=== PATIENT | male | born 1970 | race Hispanic/Latino ===

== ENCOUNTER 2017-08-03 12:43 | Outpatient (CLI) | payer BC ==
--- NOTE | 2017-08-03 15:04 | MRI ---
MRI OF THE CERVICAL SPINE WITHOUT CONTRAST: COMPARISON: None. HISTORY: Neck pain that radiates down both shoulders greater on the left for 2 months. TECHNIQUE: Multiplanar, multisequence MR images were obtained of the cervical spine without contrast. FINDINGS: There is mild desiccation of the intervertebral disks in the cervical spine without significant heig ht loss. The vertebral bodies demonstrate normal height and alignment without fracture or subluxati on. The visualized cord demonstrates normal signal throughout. The craniocervical junction is unre markable. C2-3: Unremarkable. C3-4: Unremarkable. C4-5: A minimal central protrusion is seen. No posterior facet arthrosis. Minimal central canal s tenosis. No neural foraminal stenosis. C5-6: Unremarkable. C6-7: A small central protrusion is seen. No posterior facet arthrosis. Mild central canal stenos is. No neural foraminal stenosis. C7-T1: Unremarkable. IMPRESSION: Mild degenerative changes of the cervical spine as above. POS: [facility]
== END 2017-08-03 12:44 | disposition home or self-care (01) ==
LOC: SCSMRI 12:43
PROVIDERS: ATTEND Psychiatry & Neurology Neurology
DX: M47.22 Other spondylosis with radiculopathy, cervical region (principal)
CPT/HCPCS: 72141

== ENCOUNTER 2018-08-18 04:40 | Emergency (ER) | payer BC ==
--- NOTE | 2018-08-18 08:46 | RAD ---
LEFT KNEE 4 VIEWS: HISTORY: A 47-year-old female with a history of bilateral knee pain status post fall. FINDINGS: No evidence for acute fracture, dislocation, or other significant acute osseous abnormality. Mild de generative changes. POS: [facility]
--- NOTE | 2018-08-18 08:47 | RAD ---
RIGHT KNEE 4 VIEWS: HISTORY: A 47-year-old male with a history of right knee pain following an injury from trauma. FINDINGS: Evidence for prior ACL repair. Arthrosis changes with fairly marked narrowing of the lateral compart ment in particular. No acute fracture or dislocation. IMPRESSION: Degenerative changes. Status post anterior cruciate ligament repair. No acute process. POS: [facility]
== END 2018-08-18 06:09 | disposition home or self-care (01) ==
LOC: ERS 04:40
DX: M25.562 Pain in left knee (principal); M25.561 Pain in right knee; I10 Essential (primary) hypertension; E78.00 Pure hypercholesterolemia, unspecified; Z79.899 Other long term (current) drug therapy; W01.0XXA Fall on same level from slipping, tripping and stumbling without subsequent striking against object, initial encounter

== ENCOUNTER 2018-10-09 20:59 | Emergency (ER) | payer BC ==
[2018-10-09 21:20] LABS: Bilirubin Negative (Negative); Blood, Urine Trace (Negative); Clarity CLEAR (Clear); Glucose, Urine (Dipstick) Negative (Negative); Leukocyte Negative (Negative); Nitrite Negative (Negative); Protein, Urine (Dipstick) Negative (Neg-Trace); Specific Gravity, Urine 1.003 (1.002-1.036); pH, Urine 6.5 (5.0-9.0)
[2018-10-09 21:21] LABS: Bacteria/HPF None Seen HPF (None Seen); Hyaline Casts/LPF 0-3 HYALINE CAST LPF (0-3 Hyaline); RBC/HPF 0-3 HPF (0-3); Squamous Epithelial None Seen HPF (0-3); WBC/HPF None Seen HPF (0-3)
[2018-10-09 21:28] LABS: #Basophils 0.1 thou/uL (0.0-0.2); #Eosinphils 0.2 thou/uL (0.0-0.7); #Lymphocytes 3.5 thou/uL (1.20-3.40); #Monocytes 1.1 thou/uL (0.11-0.59); #Neutrophils 7.4 thou/uL (1.40-6.50); %Basophils 0.9 % (0.0-1.0); %Eosinophils 1.8 % (0.0-10.0); %Lymphocytes 28.6 % (21.0-51.0); %Monocytes 8.6 % (0.0-10.0); %Neutrophils 60.1 % (42.0-75.0); Mean Corpuscular HGB CONC 33.8 g/dL (32.0-36.0); Mean Corpuscular Hemoglobin 30.6 pg (27.0-31.0); Mean Corpuscular Volume 90.7 fL (78.0-98.0); Mean Platelet Volume 7.5 fL (7.4-10.4); Platelet Count 311 thou/uL (130-400); RBC Distribution Width 12.6 % (11.5-14.5); Red Blood Cell (RBC) Count 4.88 mill/uL (4.70-6.10); White Blood Cell (WBC) Count 12.4 thou/uL (4.8-10.8)
[2018-10-09 21:48] LABS: ALT (SGPT) 27 U/L (8-55); AST (SGOT) 16 U/L (5-34); Albumin 4.5 g/dL (3.5-5.0); Alkaline Phosphatase 85 U/L (40-150); Anion Gap 12 mmol/L (10-20); BUN (Urea Nitrogen) 11 mg/dL (8.9-20.6); Bilirubin, Total 0.3 mg/dL (0.2-1.2); Calc. Creatinine Clearance 0 mL/min (70-130); Calcium 9.5 mg/dL (7.8-10.44); Carbon Dioxide 26 mmol/L (22-29); Chloride 105 mmol/L (98-107); Estimated GFR-MDRD 74; Globulin 3.2 g/dL (2.4-3.5); Glucose 107 mg/dL (70-105); Lipase 18 U/L (8-78); Potassium 3.7 mmol/L (3.5-5.1); Protein, Total 7.7 g/dL (6.0-8.3); Sodium 139 mmol/L (136-145)
[2018-10-09] MEDS ORDERED: Ketorolac Tromethamine 60 MG/2 ML VIAL ONE (22:29)
--- NOTE | 2018-10-09 23:10 | CT ---
CT OF THE ABDOMEN AND PELVIS WITHOUT CONTRAST 10/09/18 COMPARISON: None. HISTORY: Abdominal pain for a day in the left flank region. TECHNIQUE: Multiple contiguous axial images were obtained in a CT of the abdomen and pelvis without contrast. Co jc reformats were performed. FINDINGS: The patient is status post cholecystectomy. There is diffuse fatty infiltration of the liver. The kid neys, adrenal glands, spleen, and pancreas are unremarkable, although evaluation is limited without I V contrast. No calcifications are seen in the kidneys or along the course of the ureters. The large and small bow el are unremarkable. The appendix is normal. No abdominal or pelvic lymphadenopathy are seen. Mild degenerative changes are seen in the spine. The visualized inferior thorax and abdominal wall so ft tissues are unremarkable. IMPRESSION: 1. No evidence of acute intra-abdominal/pelvic abnormality. 2. Fatty liver. POS: [facility]
== END 2018-10-09 23:55 | disposition home or self-care (01) ==
LOC: ERS 20:59
DX: R10.13 Epigastric pain (principal); I10 Essential (primary) hypertension; J45.909 Unspecified asthma, uncomplicated; E78.00 Pure hypercholesterolemia, unspecified; F41.9 Anxiety disorder, unspecified; F32.9 Major depressive disorder, single episode, unspecified; Z87.891 Personal history of nicotine dependence; Z79.899 Other long term (current) drug therapy
CPT/HCPCS: 36415; 74176; 80053; 81003; 81015; 83690; 85025; 94760; 96372; J1885

== ENCOUNTER 2018-10-26 09:25 | Emergency (ER) | payer BC ==
[2018-10-26 10:25] LABS: #Basophils 0.1 thou/uL (0.0-0.2); #Eosinphils 0.3 thou/uL (0.0-0.7); #Lymphocytes 2.8 thou/uL (1.20-3.40); #Monocytes 0.8 thou/uL (0.11-0.59); #Neutrophils 5.3 thou/uL (1.40-6.50); %Basophils 1.1 % (0.0-1.0); %Eosinophils 3.2 % (0.0-10.0); %Lymphocytes 29.8 % (21.0-51.0); %Monocytes 9.1 % (0.0-10.0); %Neutrophils 56.9 % (42.0-75.0); Hemoglobin 15.9 g/dL (14.0-18.0); Mean Corpuscular HGB CONC 33.4 g/dL (32.0-36.0); Mean Corpuscular Hemoglobin 30.1 pg (27.0-31.0); Mean Corpuscular Volume 90.2 fL (78.0-98.0); Platelet Count 333 thou/uL (130-400); RBC Distribution Width 12.3 % (11.5-14.5); Red Blood Cell (RBC) Count 5.27 mill/uL (4.70-6.10); White Blood Cell (WBC) Count 9.3 thou/uL (4.8-10.8)
[2018-10-26 10:40] LABS: ALT (SGPT) 29 U/L (8-55); AST (SGOT) 15 U/L (5-34); Albumin 4.6 g/dL (3.5-5.0); Alkaline Phosphatase 83 U/L (40-150); Anion Gap 11 mmol/L (10-20); BUN (Urea Nitrogen) 10 mg/dL (8.9-20.6); Bilirubin, Total 0.4 mg/dL (0.2-1.2); Calc. Creatinine Clearance 0 mL/min (70-130); Calcium 9.8 mg/dL (7.8-10.44); Carbon Dioxide 28 mmol/L (22-29); Chloride 102 mmol/L (98-107); Estimated GFR-MDRD Greater than 90; Globulin 3.2 g/dL (2.4-3.5); Glucose 86 mg/dL (70-105); Potassium 3.5 mmol/L (3.5-5.1); Protein, Total 7.8 g/dL (6.0-8.3); Sodium 137 mmol/L (136-145)
--- NOTE | 2018-10-26 11:20 | RAD ---
CHEST ONE VIEW: INDICATIONS: Hypertension and chest pain. COMPARISON: 02/10/2018 FINDINGS: The lungs are clear. The cardiomediastinal silhouette is within normal limits. No acute osseous abn ormality is evident. IMPRESSION: No acute cardiopulmonary abnormality. POS: [facility]
== END 2018-10-26 13:25 | disposition home or self-care (01) ==
LOC: ERS 09:25
DX: I16.0 Hypertensive urgency (principal); I10 Essential (primary) hypertension; E78.00 Pure hypercholesterolemia, unspecified; J45.909 Unspecified asthma, uncomplicated; F41.9 Anxiety disorder, unspecified; F32.9 Major depressive disorder, single episode, unspecified; Z87.891 Personal history of nicotine dependence; Z79.899 Other long term (current) drug therapy
CPT/HCPCS: 71045; 80053; 84484; 85025; 85379; 93005

== ENCOUNTER 2019-08-01 07:10 | Inpatient (IN) | payer BC, OTHER ==
[2019-08-01] MEDS ORDERED: HYDROcodone/Acetaminophen 10/325 mg Tablet ONE (07:29)
[2019-08-01] MEDS ORDERED: Ketorolac Tromethamine 30 MG/ML VIAL ONE (07:54)
[2019-08-01] MEDS ORDERED: Fentanyl 100 MCG/2 ML VIAL ONE ×4 (07:54→17:45)
--- NOTE | 2019-08-01 08:13 | RAD ---
LEFT SHOULDER 3 VIEWS: HISTORY: Injury from a fall from a ladder 8 feet. FINDINGS/IMPRESSION: No fracture, dislocation, or other significant acute osseous abnormality. POS: [facility]
--- NOTE | 2019-08-01 08:15 | RAD ---
LEFT ANKLE 3 VIEWS: HISTORY: Injury from a fall from a ladder 8 feet with ankle pain. FINDINGS: There is some lateral soft tissue swelling. There is a comminuted calcaneal fracture with minimal fl attening of Bohler's angle. The remainder of the ankle appears intact. IMPRESSION: Comminuted calcaneal fracture. POS: [facility]
--- NOTE | 2019-08-01 08:18 | RAD ---
LEFT FOOT 3 VIEWS: HISTORY: Injured from a fall from a ladder 8 feet. Markedly comminuted calcaneal fracture with some flattening of Bohler's angle. Minimal associated so ft tissue swelling. IMPRESSION: Comminuted calcaneal fracture. POS: [facility]
--- NOTE | 2019-08-01 08:23 | CT ---
CT left foot noncontrast HISTORY: Fall. Foot injury. Fracture. FINDINGS: There are innumerable irregular ossific fragments associated with an extensively comminuted calcaneal fracture. Minimal distraction of an oblique component into the calcaneocuboid joint. Comminuted mildly displaced oblique components of fracture into the posterior aspect of the subtalar facet with 0.6 cm Distraction and anterior aspect with 0.4 cm distraction of fragments. Boehler's angle estimated at the degrees. Small plantar and Achilles enthesophytes. IMPRESSION: Extensively comminuted, mildly displaced calcaneal fracture including multiple intra-ryne cular components.
[2019-08-01] MEDS ORDERED: Dextrose 50% Abboject 50 ML SYRINGE SLOW IVP PRN (09:17)
[2019-08-01] MEDS ORDERED: Dextrose 5% in Water 1,000 ML IV PRN (09:17)
[2019-08-01] MEDS ORDERED: HumaLOG 300 UNITS/3 ML VIAL SC PRN (09:17)
[2019-08-01] MEDS ORDERED: hydrALAZINE 20 MG/ML VIAL SLOW IVP PRN (09:17)
[2019-08-01] MEDS ORDERED: Ondansetron PF 4 MG/2 ML Vial IVP PRN (09:17)
[2019-08-01] MEDS ORDERED: Ondansetron ODT 4 MG TAB PO PRN (09:17)
[2019-08-01 09:22] LABS: #Basophils 0.1 thou/uL (0.0-0.2); #Eosinphils 0.2 thou/uL (0.0-0.7); #Lymphocytes 3.4 thou/uL (1.20-3.40); #Monocytes 1.2 thou/uL (0.11-0.59); #Neutrophils 11.1 thou/uL (1.40-6.50); %Basophils 0.6 % (0.0-1.0); %Eosinophils 1.2 % (0.0-10.0); %Lymphocytes 21.2 % (21.0-51.0); %Monocytes 7.8 % (0.0-10.0); %Neutrophils 69.3 % (42.0-75.0); Mean Corpuscular HGB CONC 32.7 g/dL (32.0-36.0); Mean Corpuscular Hemoglobin 29.7 pg (27.0-31.0); Mean Corpuscular Volume 90.6 fL (78.0-98.0); Mean Platelet Volume 7.8 fL (7.4-10.4); Platelet Count 303 thou/uL (130-400); RBC Distribution Width 12.3 % (11.5-14.5); Red Blood Cell (RBC) Count 5.06 mill/uL (4.70-6.10)
[2019-08-01 09:29] LABS: PTT 26.5 SEC (22.9-36.1)
--- NOTE | 2019-08-01 09:40 | RAD ---
Chest AP view INDICATION: Fall from ladder COMPARISON: October 26, 2018 FINDINGS: Lungs:The lungs are clear Cardiac silhouette:The cardiomediastinal silhouette appears within normal limits. Pulmonary vasculature:Normal Pleural spaces:No pleural effusion or pneumothorax is demonstrated. Upper abdomen:No abnormality seen. Osseous structures: No acute osseous abnormality. Additional findings:None. IMPRESSION: No acute cardiopulmonary abnormality.
[2019-08-01] MEDS ORDERED: Adacel (T-DAP) 0.5 ML SYRINGE ONE (09:41)
[2019-08-01] MEDS ORDERED: CEFAZOLIN 2 GM in Premix Bag 1 BAG IVPB SCH (09:45)
[2019-08-01 09:46] LABS: ALT (SGPT) 42 U/L (8-55); AST (SGOT) 15 U/L (5-34); Albumin 4.6 g/dL (3.5-5.0); Alkaline Phosphatase 82 U/L (40-150); Anion Gap 12 mmol/L (10-20); BUN (Urea Nitrogen) 9 mg/dL (8.9-20.6); Bilirubin, Total 0.3 mg/dL (0.2-1.2); CK (CPK) 99 U/L (30-200); Calc. Creatinine Clearance 0 mL/min (70-130); Calcium 9.1 mg/dL (7.8-10.44); Carbon Dioxide 24 mmol/L (22-29); Chloride 105 mmol/L (98-107); Estimated GFR-MDRD Greater than 90; Globulin 2.8 g/dL (2.4-3.5); Glucose 120 mg/dL (70-105); Potassium 3.9 mmol/L (3.5-5.1); Protein, Total 7.4 g/dL (6.0-8.3); Sodium 137 mmol/L (136-145)
--- NOTE | 2019-08-01 10:38 | CON ---
DATE OF CONSULTATION: This is Bruce Stone PA-C dictating a report for Kb Abreu MD. HISTORY OF PRESENT ILLNESS: We were asked by Trauma and Emergency Room to see the patient. 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 He sustained a left comminuted calcaneal fracture. He has some other aches and pains throughout his body. The trauma is looking at, but so far x-rays are negative. No loss of consciousness. He is very somnolent. Last meal was last night, but he did have a cup of coffee this morning. The patient is able to answer all his questions well and has no other current concerns. PAST MEDICAL HISTORY: Positive for hyperlipidemia, hypertension, some asthma, sleep apnea. PAST SURGICAL HISTORY: Cholecystectomy, right knee, tonsillectomy, and hernia repair. PSYCHIATRIC HISTORY: Does have a little bit of anxiety and depression. 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 Very rare EtOH use. No drug use. Smokes maybe one cigarette a week, but quit smoking more heavily about 10 years ago. ALLERGIES: TB SHOT INJECTION. CURRENT MEDICATIONS: 1. Amlodipine. 2. Bupropion. 3. Losartan. 4. Metoprolol. REVIEW OF SYSTEMS: He is having some shoulder pain. Definite left foot and ankle pain. His ribs are a little bit sore, but otherwise has no cardiac chest pain. No current shortness of breath. No bowel or bladder issues. Rest of review of systems negative. PHYSICAL EXAMINATION: GENERAL: Well-nourished, well-developed male, resting on a gurney in room 5 in no acute distress. Speech clear. Affect pleasant. Answers questions appropriately. He is alert and oriented x3. HEENT: Normal exam. Face symmetric. Tongue midline. NECK: Supple. Trachea midline. EXTREMITIES: Upper extremities; equal size, shape, symmetry. Normal bulk and tone. Shoulders are little sore with movement, left greater than right. We will get left shoulder in a sling. Lower extremities, equal size, shape, symmetry. Normal bulk and tone with the exception of the left foot have some swelling and definite tenderness to palpation. RESPIRATORY: No distress. 16 a minute. X-rays show a comminuted calcaneal fracture. Labs currently pending. ASSESSMENT: 1. Left calcaneus fracture status post fall through ceiling. 2. Left shoulder pain. X-rays negative. We will sling this arm. PLAN: Spoke with the patient, supervisors in the room. We will get him set up for percutaneous screws. I have explained the procedure to him. He understands risks, benefits, and is amenable to go forth with surgery. He has had some anesthesia complications in the past where he is slow to wake up, but this could be from his asthma and sleep apnea. We will try and let anesthesia know, but I also wrote the patient a note inform anesthesia before going under. The patient's questions have been addressed. We will get him on the surgical schedule antibiotics. He has been n.p.o. since this morning after having a cup of coffee. Job ID: [id number]
[2019-08-01] MEDS: Sodium Chloride 0.9% 1,000 ML IV SCH ×2 (11:10→19:39)
[2019-08-01] MEDS ORDERED: Acetaminophen 1,000 MG in Premix Bag 1 BAG IVPB SCH (12:00)
[2019-08-01] MEDS: traMADol HCl 50 MG TAB PO SCH ×4 (12:33→23:37)
[2019-08-01] MEDS ORDERED: Ketorolac Tromethamine 15 MG/ML VIAL IVP PRN (14:00)
[2019-08-01] MEDS ORDERED: Gabapentin 100 MG CAP PO SCH (15:00)
[2019-08-01] MEDS ORDERED: Gabapentin 300 MG CAP PO PRN (18:11)
[2019-08-01] MEDS ORDERED: HYDROmorphone 2 MG/ML VIAL SLOW IVP PRN (18:24)
[2019-08-01] MEDS ORDERED: Morphine Sulfate 2 MG/ML SYRINGE SLOW IVP PRN (18:24)
[2019-08-01] MEDS ORDERED: Meperidine HCl/PF 25 MG/ML VIAL SLOW IVP PRN (18:24)
[2019-08-01] MEDS ORDERED: Promethazine HCl 25 MG/ML VIAL SLOW IVP PRN (18:24)
[2019-08-01] MEDS ORDERED: PACU-Morphine 4MG/ML VIAL SLOW IVP PRN (18:24)
[2019-08-01] MEDS ORDERED: Ondansetron HCl/PF 4 MG/2 ML Vial IVP PRN (18:24)
[2019-08-01] MEDS ORDERED: Promethazine HCl 25 MG/ML VIAL IM PRN (18:24)
--- NOTE | 2019-08-01 19:15 | HP ---
HISTORY OF PRESENT ILLNESS: Mr. Butler is a 48-year-old male, coming to the OR for evaluation of left hip pain after a fall. 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 No loss of consciousness. He did not hit head. He also complained of pain of the left shoulder. Upon arrival to the ER, the patient's GCS was 15, aware and alert. Vital signs stable. Complains of pain of left leg and left shoulder. Limited range of motion from the left shoulder. REVIEW OF SYSTEMS: Noncontributory except per HPI. PAST MEDICAL HISTORY: The patient has a past medical history of hypertension, hyperlipidemia, and sleep apnea. PAST SURGICAL HISTORY: cholecystectomy, tonsillectomy, and hernia repair. 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 Denied alcohol or drug use. Smokes occasionally. ALLERGIES: TB SHOT INJECTION. CURRENT MEDICATIONS: 1. Amlodipine. 2. Bupropion. 3. Losartan. 4. Metoprolol. PHYSICAL EXAMINATION: GENERAL: The patient is lying down in bed, comfortable with no acute distress. The patient was well groomed. VITAL SIGNS: Heart rate 90, blood pressure 130/80, O2 saturation 98 on room air, and respiratory rate is 16. HEENT: Atraumatic. No bruising. No deformity. No tender to palpation. Pupils 3 mm, round, reactive to light equally bilaterally. NECK: Trachea midline. No pain to palpation. CHEST: Atraumatic. Chest expansion equal bilaterally. No tender to palpation. LUNGS: Clear bilaterally. HEART: Regular rate and rhythm. ABDOMEN: Soft and nondistended. No obvious sign of injury. PELVIS: Stable. EXTREMITIES: Left lower extremity is on splint, short leg splint has been in place. Neurovascularly intact x4. Left shoulder tender to touch and limited range of motion due to pain. NEUROLOGIC: No focal neurologic deficits. ASSESSMENT: Left calcaneus fracture, status post fall from the ceiling, left shoulder pain, x-ray negative. PLAN: Admit to surgical floor. IV pain control. Initiate nonpharmacological DVT prophylaxis. The patient will be going to the OR today with Orthopedics for calcaneus fracture fixation. The patient will be treating left shoulder pain using conservative and further plan per Orthopedic. Job ID: [id number]
--- NOTE | 2019-08-01 19:53 | RAD ---
INTRAOPERATIVE FLUOROSCOPY: History: ORIF left calcaneus. FINDINGS: Three intraoperative fluoroscopic views demonstrate three screws at the level of the calcaneus. IMPRESSION: Fluoroscopy as above. POS: [facility]
[2019-08-01] MEDS: Senokot S 8.6-50 MG TAB PO SCH (21:44)
[2019-08-01] MEDS: Famotidine/PF 20 mg/2ml Vial SLOW IVP SCH (21:44)
--- NOTE | 2019-08-01 22:11 | OP ---
DATE OF PROCEDURE: 08/01/2019 PROCEDURE PERFORMED: Percutaneous screw fixation of left calcaneus fracture. PREOPERATIVE DIAGNOSIS: Left joint depression calcaneus fracture. POSTOPERATIVE DIAGNOSIS: Left joint depression calcaneus fracture. COMPLICATIONS: None. ESTIMATED BLOOD LOSS: Minimal. ASSEMBLER PLASTIC BOAT: None. IMPLANT: Synthes small fragment screws 3.5 mm. INDICATIONS: Mr. Butler is a 48-year-old male, who fell from a height. He landed on his left leg. He sustained a fracture of the calcaneus. He was indicated for percutaneous fixation of the calcaneus with screw fixation. Risks have been reviewed. He is aware of the risk of chronic pain, prolonged recovery, prolonged nonweightbearing, wound complication, and others. DESCRIPTION OF PROCEDURE: Mr. Butler was identified in the preoperative holding area. His correct extremity was marked. He was carried to the operating room. He was positioned supine. General anesthesia was induced. A multidisciplinary time-out was performed. The left lower extremity was prepped and draped in sterile fashion. We began the procedure with evaluation of the calcaneus under intraoperative x-ray. We identified the joint depression of the fracture. We made a small incision and inserted the hemostats into the fracture line. We elevated the joint back into its anatomic position, correcting Bohler's angle. At this point, we made a second incision and placed a K-wire. We then passed a 3.5 mm screw across the fracture site under the joint surface. We placed a second screw in similar fashion to the first. We then placed a screw across the tuberosity after a K-wire was used as a joystick to reduce the tuberosity. We took x-ray images confirming all reduction. There were no hardware complications. We irrigated and closed our wounds with 3-0 nylon suture. A sterile dressing was placed, which was well padded. The patient was taken to the recovery room in good condition. Job ID: [id number]
--- NOTE | 2019-08-01 23:16 | PRG ---
DATE OF SERVICE: 08/01/2019 SUBJECTIVE: The patient is status post fall, which he sustained a left calcaneus fracture and left shoulder contusion. The patient has just returned from the operating room, where he underwent percutaneous screw fixation of his left calcaneus fracture. There were no reported issues. The patient's pain is controlled. He is tolerating a liquid diet at this time. This will be advanced as tolerated. OBJECTIVE: VITAL SIGNS: Stable. The patient is afebrile. GENERAL: The patient is resting comfortably in bed. He is awake and alert x3, conversant. [place] Coma Scale is 15. LUNGS: Clear to auscultation with good inspiratory and expiratory effort. HEART: Regular rate and rhythm. ABDOMEN: Soft, flat, and nontender with active bowel sounds. EXTREMITIES: Neurovascularly intact x4. Postop dressing is clean, dry, and intact. Of note, the patient still has an effective block on his left lower extremity. Left upper extremity is immobilized in a sling. ASSESSMENT/PLAN: 1. Status post fall from approximately 8 feet. 2. Percutaneous screw fixation of left calcaneus fracture. 3. Left shoulder contusion, strain. 4. Acute pain secondary to above. PLAN: Plan will be to continue supportive care, p.o. pain medications. Advance his diet. Sling for his left upper extremity. Begin working with Physical and Occupational Therapy and discuss placement tomorrow. Job ID: [id number]
[2019-08-01] MEDS: CEFAZOLIN 2 GM in Premix Bag 1 BAG IVPB SCH (23:36)
[2019-08-01] MEDS: Acetaminophen 500 MG TAB PO SCH (23:37)
[2019-08-02] MEDS: Sodium Chloride 0.9% 1,000 ML IV SCH (02:10)
[2019-08-02] MEDS: Acetaminophen 500 MG TAB PO SCH ×4 (05:39→23:33)
[2019-08-02] MEDS: traMADol HCl 50 MG TAB PO SCH (05:39)
[2019-08-02] MEDS ORDERED: Ibuprofen 600 MG TAB PO SCH (06:00)
[2019-08-02] MEDS ORDERED: traMADol HCl 50 MG TAB PO PRN (07:31)
[2019-08-02] MEDS ORDERED: Ibuprofen 800 MG TAB PO SCH (07:40)
[2019-08-02] MEDS: Losartan 25 MG TAB PO SCH (08:42)
[2019-08-02] MEDS: Metoprolol Tartrate 25 MG TAB PO SCH ×2 (08:42→17:00)
[2019-08-02] MEDS: CEFAZOLIN 2 GM in Premix Bag 1 BAG IVPB SCH (08:42)
[2019-08-02] MEDS: Gabapentin 300 MG CAP PO SCH ×3 (08:43→21:30)
[2019-08-02] MEDS: Senokot S 8.6-50 MG TAB PO SCH ×2 (08:43→21:30)
[2019-08-02] MEDS: Bupropion 150 MG XL TAB PO SCH (08:43)
[2019-08-02] MEDS: Amlodipine 10 MG TAB PO SCH (08:43)
[2019-08-02] MEDS: Famotidine/PF 20 mg/2ml Vial SLOW IVP SCH ×2 (08:45→21:29)
[2019-08-02] MEDS: Polyethylene Glycol 3350 17 GM Packet PO SCH (08:46)
[2019-08-02] MEDS: traMADol HCl 50 MG TAB PO PRN ×3 (11:26→23:33)
--- NOTE | 2019-08-02 12:25 | MRI ---
MRI Upper Ext Jt Lt WO Con History: Shoulder pain Comparison: None. Findings: Biceps tendon: There is displacement, extra articular, of the biceps tendon superficial to the subscapularis tendon. There are tears of the coracohumeral ligament and superior glenohumeral ligament portions of the biceps clint as well as the transverse humeral ligament. Severe intra-articular tendinosis. Labrum: Inferior labral tear extending to the anterior-inferior labral with paralabral ganglion pseud ocyst formation. Chronic tear and scar of the middle glenohumeral ligament which is interposed between the labrum and humeral head. Rotator cuff: Severe tendinosis and interstitial tearing subscapularis. Full-thickness full width sup raspinatus tendon tear from the footprint retracted to the mid humeral head. High-grade tendinosis and mild undersurface partial tearing of the infraspinatus tendon. Bones: Type I acromion. Moderate degenerative disease acromioclavicular joint. Normal glenoid version . Soft tissues: Large subacromial subdeltoid bursa effusion. Large subcoracoid effusion. Impression: 1. Full-thickness full width supraspinatus tendon tear from the footprint retracted to the mid noman l head. Minimal muscle atrophy. 2. Extra articular displacement of the biceps tendon. Tears of the superior glenohumeral ligament, co racohumeral ligament, and transverse humeral ligament portions of the biceps clint. Moderate intra-articular tendinosis and tearing of the intra-articular tendon. 3. Severe tendinosis and interstitial tearing of the subscapularis tendon. 4. Tear of the inferior labrum with early ganglion pseudocyst formation anteroinferiorly measuring 1. 3 x 0.8 x 0.9 cm. 5. Tear of the middle glenohumeral ligament which is interposed between the anterior inferior surface the humeral head and the glenoid.
--- NOTE | 2019-08-02 13:46 | PRG ---
DATE OF SERVICE: 08/02/2019 SUBJECTIVE: The patient is status post fall where he sustained a left calcaneus fracture and left shoulder contusion. The patient is postop day #1, where he underwent percutaneous screw fixation of his left calcaneus fracture. There were no reported issues. The patient's pain is well controlled. He is tolerating a regular diet. The patient was assessed by PT and determined he needs a scooter and a shower chair. OBJECTIVE: VITAL SIGNS: Stable. GENERAL: The patient is sitting comfortably on the side of the bed. He is awake, alert, and oriented x3. LUNGS: He has nonlabored breathing with good inspiratory and expiratory effort. ABDOMEN: Soft, flat, and nontender. EXTREMITIES: Neurovascularly intact x4. Postop dressing is clean, dry, and intact. The patient's left arm is still in a sling, and he still has an effective block in his left lower extremity. ASSESSMENT: 1. Status post fall from approximately 8 feet. 2. Percutaneous screw fixation of left calcaneus fracture. 3. Left supraspinatus full thickness tear. 4. Acute pain secondary to above. 5. History of hypertension. 6. History of hyperlipidemia. 7. History of sleep apnea. PLAN: Plan will be to continue supportive care, p.o. pain medications. He is continued to see how he tolerates a regular diet. We will see what are those recommendations are regarding supraspinatus tear. Continue working with PT and OT and work on placement with Case Management. Patient was seen and examined by Dr. Carroll and agrees. Job ID: [id number] MTDD
[2019-08-02] MEDS: Ibuprofen 800 MG TAB PO SCH ×2 (14:39→21:30)
[2019-08-02] MEDS: Enoxaparin Sodium 30 MG/0.3 ML SYRINGE SC SCH (21:29)
--- NOTE | 2019-08-02 22:21 | PRG ---
DATE OF SERVICE: 08/02/2019 SUBJECTIVE: The patient remains on the surgical floor. The patient is status post mechanical fall 8 feet. The patient is postop day #1, percutaneous screw fixation of his left calcaneus fracture. The patient reports that his left lower extremity pain is well controlled at this time. The patient does report some moderate left shoulder pain. The patient continues to tolerate a regular diet. OBJECTIVE: VITAL SIGNS: Stable, afebrile. GENERAL: The patient is awake, alert, sitting up in hospital bed. No acute distress. RESPIRATORY: Equal chest rise and fall, no distress. EXTREMITIES: Moves all extremities. Left upper extremity in sling, postop dressing clean, dry, and intact. ASSESSMENT: 1. Status post fall from approximately 8 feet. 2. Left calcaneus fracture, status post postop day #1 percutaneous screw fixation. 3. Left supraspinatus full-thickness tear. 4. Acute traumatic pain. 5. History of hypertension, hyperlipidemia, and sleep apnea. PLAN: Continue supportive care. Continue regular diet. Continue physical and occupational therapy. Pending orthopedic recommendations for the patient's left shoulder. Plan was discussed with the patient, who agrees. Job ID: [id number]
[2019-08-03] MEDS: Acetaminophen 500 MG TAB PO SCH (05:59)
[2019-08-03] MEDS: Ibuprofen 800 MG TAB PO SCH (06:00)
[2019-08-03] MEDS: Bupropion 150 MG XL TAB PO SCH (08:55)
[2019-08-03] MEDS: Amlodipine 10 MG TAB PO SCH (08:55)
[2019-08-03] MEDS: Losartan 25 MG TAB PO SCH (08:55)
[2019-08-03] MEDS: Metoprolol Tartrate 25 MG TAB PO SCH (08:55)
[2019-08-03] MEDS: Gabapentin 300 MG CAP PO SCH (08:55)
[2019-08-03] MEDS: Senokot S 8.6-50 MG TAB PO SCH (08:56)
[2019-08-03] MEDS: Famotidine/PF 20 mg/2ml Vial SLOW IVP SCH (08:57)
[2019-08-03] MEDS: Polyethylene Glycol 3350 17 GM Packet PO SCH (08:59)
[2019-08-03] MEDS: Enoxaparin Sodium 30 MG/0.3 ML SYRINGE SC SCH (10:09)
[2019-08-03 13:50] VITALS: BP 136/89; TEMP 98.6
--- NOTE | 2019-08-04 02:10 | DIS ---
DATE OF ADMISSION: 08/01/2019 DATE OF DISCHARGE: 08/03/2019 CONSULTING PHYSICIAN: Dr. Abreu of Orthopedic Surgery. ADMISSION DIAGNOSIS: Mechanical fall from 8 feet, left calcaneus fracture and left shoulder tendon tears. DISCHARGE DIAGNOSIS: Mechanical fall from 8 feet, left calcaneus fracture and left shoulder tendon tears. PROCEDURES PERFORMED: The patient went to the OR on August 01, 2019, and had perc screw fixation of the left calcaneus fracture with Dr. Abreu. HOSPITAL COURSE: The patient is a 48-year-old male, who presented to the emergency department after mechanical fall 8 feet through a ceiling. On evaluation, the patient had left calcaneus fracture and some significant left shoulder pain. He was admitted to the Trauma Service and went to the OR with Dr. Abreu of Orthopedic Surgery in August 01, 2019, for perc screw fixation of the left calcaneal fracture. Postoperatively, he worked with Physical and Occupational Therapy and received MRI of the left shoulder, which demonstrated multiple left-sided tenderness injuries. Orthopedic Surgery recommended delayed fixation of those left shoulder tendon injuries. At the time of discharge, the patient was getting around with a knee scooter. He was also able to hop around well. He was tolerating regular diet. Pain was well controlled and he was restarted on all of his home medications. He was voiding without difficulties. DISCHARGE DISPOSITION: Home. DISCHARGE CONDITION: Satisfactory. PHYSICAL EXAMINATION: VITAL SIGNS: Temperature 98.6, pulse 59, respirations 18, oxygen saturation 97% on room air, blood pressure 136/89. GENERAL: Well-appearing middle-aged male, sitting up in bed with no signs of acute distress. PULMONARY: Equal chest rise and fall. Clear breath sounds bilaterally. No signs of acute respiratory distress. CARDIAC: Regular rate and rhythm. No murmurs, gallops, or rubs. GASTROINTESTINAL: Abdomen is soft, nontender, and nondistended. EXTREMITIES: 2+ pulses in all extremities. No significant swelling noted. Gross motor and sensation are intact. Splint to left lower extremity is clean, dry, and intact with no signs of oozing or infection. Left upper extremity with sling in place and fitting appropriately. NEUROLOGIC: GCS is 15. DISCHARGE INSTRUCTIONS: The patient was discharged home with nonweightbearing to the left lower extremity, weightbearing as tolerated with sling to left arm. Activity as tolerated. Regular diet. The patient received a knee scooter to get around. DISCHARGE MEDICATIONS: Included: 1. Tylenol. 2. Amlodipine. 3. bupropion. 4. Lovenox for two weeks. 5. Gabapentin. 6. Ibuprofen. 7. Losartan. 8. Metoprolol. 9. MiraLAX. 10. Tramadol. FOLLOWUP APPOINTMENTS: The patient is to follow up with Dr. Avina in 3 to 4 weeks, as well as Dr. Abreu in 14 days. No need to follow up with Trauma Surgery. This is merely a summary of the patient's hospitalization. For full details, please see his medical record in its entirety. Job ID: [id number]
== END 2019-08-03 12:49 | disposition home or self-care (01) | DRG 505 ==
LOC: ERS 07:10 → SJJU 11:03
PROVIDERS: ADMIT Surgery; ATTEND Surgery
PROC: 0QSM34Z Reposition Left Tarsal with Internal Fixation Device, Percutaneous Approach (ICD-10-PCS; principal; 2019-08-01)
DX: S92.062A Displaced intraarticular fracture of left calcaneus, initial encounter for closed fracture (principal); S46.012A Strain of muscle(s) and tendon(s) of the rotator cuff of left shoulder, initial encounter; W13.2XXA Fall from, out of or through roof, initial encounter; S40.012A Contusion of left shoulder, initial encounter; E78.5 Hyperlipidemia, unspecified; I10 Essential (primary) hypertension; J45.909 Unspecified asthma, uncomplicated; G47.30 Sleep apnea, unspecified; F41.9 Anxiety disorder, unspecified; F32.9 Major depressive disorder, single episode, unspecified; R40.2412 Glasgow coma scale score 13-15, at arrival to emergency department; Z88.7 Allergy status to serum and vaccine; Z79.899 Other long term (current) drug therapy; Z87.891 Personal history of nicotine dependence; Z90.49 Acquired absence of other specified parts of digestive tract
CPT/HCPCS: 29515; 36415; 71045; 76000; 80053; 82550; 85025; 85610; 85730; 86850; 86900; 86901; 90471; 90715; 93005; 96361; 96374; 96375; J0131; J0690; J1650; J1885; J3010; S0028

== ENCOUNTER 2019-09-16 07:20 | Outpatient (CLI) | payer OTHER ==
[2019-09-16 15:07] LABS: #Basophils 0.1 thou/uL (0.0-0.2); #Eosinphils 0.4 thou/uL (0.0-0.7); #Lymphocytes 2.9 thou/uL (1.20-3.40); #Neutrophils 8.9 thou/uL (1.40-6.50); %Basophils 0.9 % (0.0-1.0); %Eosinophils 2.8 % (0.0-10.0); %Lymphocytes 21.7 % (21.0-51.0); %Monocytes 7.8 % (0.0-10.0); %Neutrophils 66.8 % (42.0-75.0); Hemoglobin 14.9 g/dL (14.0-18.0); Mean Corpuscular HGB CONC 33.4 g/dL (32.0-36.0); Mean Corpuscular Hemoglobin 30.1 pg (27.0-31.0); Mean Corpuscular Volume 90.3 fL (78.0-98.0); Mean Platelet Volume 8.1 fL (7.4-10.4); Platelet Count 303 thou/uL (130-400); Red Blood Cell (RBC) Count 4.93 mill/uL (4.70-6.10); White Blood Cell (WBC) Count 13.4 thou/uL (4.8-10.8)
--- NOTE | 2019-09-19 16:43 | EKG ---
Test Reason : Blood Pressure : / mmHG Vent. Rate : 059 BPM Atrial Rate : 059 BPM P-R Int : 152 ms QRS Dur : 098 ms QT Int : 434 ms P-R-T Axes : 036 017 031 degrees QTc Int : 429 ms Sinus bradycardia Otherwise normal ECG When compared with ECG of 01-AUG-2019 09:23, No significant change was found Confirmed by DR. Martín MANSFIELD ([id number]) on 09/19/2019 4:43:17 PM Referred By: [facility]ION Confirmed By:DR. Martín MANSFIELD
== END 2019-09-16 07:21 | disposition home or self-care (01) ==
LOC: LABBT 07:20
PROVIDERS: ATTEND Orthopaedic Surgery
DX: Z01.818 Encounter for other preprocedural examination (principal); S46.012A Strain of muscle(s) and tendon(s) of the rotator cuff of left shoulder, initial encounter
CPT/HCPCS: 85025; 93005; 93010

== ENCOUNTER 2019-09-22 07:45 | Day surgery (SDC) | payer OTHER ==
[2019-09-16 13:42] VITALS: BMI 34.0
[2019-09-22] MEDS ORDERED: Midazolam HCl 2 mg/2 ml Vial ONE (08:12)
[2019-09-22] MEDS ORDERED: Fentanyl 100 MCG/2 ML VIAL ONE (08:12)
[2019-09-22] MEDS ORDERED: traMADol HCl 50 MG TAB PO PRN ×2 (09:49)
[2019-09-22] MEDS ORDERED: Ketorolac Tromethamine 30 MG/ML VIAL IVP PRN (09:49)
[2019-09-22] MEDS ORDERED: Fentanyl 100 MCG/2 ML VIAL SLOW IVP PRN (09:49)
[2019-09-22] MEDS ORDERED: Ropivacaine 0.2% 550 ML 550 ML NERVE BLCK SCH (09:49)
[2019-09-22] MEDS ORDERED: Zolpidem Tartrate 5 MG TAB PO PRN (09:49)
[2019-09-22] MEDS ORDERED: Promethazine HCl 25 MG/ML VIAL IM PRN (09:49)
[2019-09-22] MEDS ORDERED: HYDROcodone/Acetaminophen 10/325 mg Tablet PO PRN ×2 (09:49)
[2019-09-22] MEDS ORDERED: Ondansetron PF 4 MG/2 ML Vial IVP PRN (09:49)
[2019-09-22] MEDS ORDERED: Acetaminophen 325 MG TAB PO PRN (09:51)
[2019-09-22] MEDS ORDERED: Ketorolac Tromethamine 30 MG/ML VIAL ONE (13:12)
[2019-09-22] MEDS ORDERED: PROPOFOL 200 MG/20 ML VIAL ONE (13:25)
[2019-09-22] MEDS ORDERED: ePHEDrine/0.9% NaCl/PF SYRINGE 50 mg/10 ml ONE (13:25)
[2019-09-22] MEDS ORDERED: Bupivacaine HCl 0.5%/Epinephrine 1:200,000/PF 30 ml Vial ONE (13:25)
[2019-09-22] MEDS ORDERED: PHENYLEPHRINE-NS 100 MCG/ML 10 ML SYRINGE ONE (13:25)
[2019-09-22] MEDS ORDERED: Glycopyrrolate 0.2 MG/ML 5 ML SYRINGE ONE (13:25)
[2019-09-22] MEDS ORDERED: Lidocaine 1% PF 5 ML VIAL ONE (13:25)
[2019-09-22] MEDS ORDERED: Ondansetron PF 4 MG/2 ML Vial ONE (13:25)
[2019-09-22] MEDS ORDERED: Ropivacaine 0.2% HCl/PF (40 MG/20 ML VIAL) ONE (13:25)
[2019-09-22] MEDS ORDERED: Rocuronium Bromide 50 MG/5 ML VIAL ONE (13:25)
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
== END 2019-09-22 15:40 | disposition home or self-care (01) ==
LOC: SDC 07:45
PROVIDERS: ATTEND Orthopaedic Surgery
PROC: 0LQ20ZZ Repair Left Shoulder Tendon, Open Approach (ICD-10-PCS; principal; 2019-09-22)
PROC: 3E0T3BZ Introduction of Anesthetic Agent into Peripheral Nerves and Plexi, Percutaneous Approach (ICD-10-PCS; principal; 2019-09-22)
PROC: 0LM20ZZ Reattachment of Left Shoulder Tendon, Open Approach (ICD-10-PCS; principal; 2019-09-22)
DX: S46.012A Strain of muscle(s) and tendon(s) of the rotator cuff of left shoulder, initial encounter (principal); S43.082A Other subluxation of left shoulder joint, initial encounter; I10 Essential (primary) hypertension; F17.200 Nicotine dependence, unspecified, uncomplicated; E78.00 Pure hypercholesterolemia, unspecified; Z79.84 Long term (current) use of oral hypoglycemic drugs; Z79.899 Other long term (current) drug therapy; W18.30XA Fall on same level, unspecified, initial encounter
CPT/HCPCS: A4306; C1713; J0131; J0670; J0690; J1885; J2001; J2250; J2405; J2704; J2795; J3010

== ENCOUNTER 2020-05-01 07:14 | Emergency (ER) | payer OTHER | END 2020-05-01 07:40 | disposition home or self-care (01) | LOC: ERS 07:14 | DX: Z20.828 Contact with and (suspected) exposure to other viral communicable diseases (principal); E78.5 Hyperlipidemia, unspecified; I10 Essential (primary) hypertension; J45.909 Unspecified asthma, uncomplicated; F41.9 Anxiety disorder, unspecified; F32.9 Major depressive disorder, single episode, unspecified; Z87.891 Personal history of nicotine dependence; Z79.899 Other long term (current) drug therapy | CPT/HCPCS: 87635; 99283; U0003 ==

== ENCOUNTER 2020-08-11 15:58 | Emergency (ER) | payer BC, OTHER ==
[~2020-08-11 15:58] MED LIST: Iopamidol-370 76% 500 ML 1 ML ONE
[2020-08-11 16:22] LABS: #Basophils 0.2 thou/uL (0.0-0.2); #Eosinphils 0.5 thou/uL (0.0-0.7); #Lymphocytes 3.5 thou/uL (1.20-3.40); #Monocytes 1.1 thou/uL (0.11-0.59); #Neutrophils 6.9 thou/uL (1.40-6.50); %Basophils 1.4 % (0.0-1.0); %Lymphocytes 28.8 % (21.0-51.0); %Monocytes 8.9 % (0.0-10.0); Hemoglobin 15.1 g/dL (14.0-18.0); Mean Corpuscular HGB CONC 32.7 g/dL (32.0-36.0); Mean Corpuscular Hemoglobin 29.3 pg (27.0-31.0); Mean Corpuscular Volume 89.9 fL (78.0-98.0); Mean Platelet Volume 8.6 fL (7.4-10.4); Platelet Count 284 thou/uL (130-400); RBC Distribution Width 12.9 % (11.5-14.5); Red Blood Cell (RBC) Count 5.16 mill/uL (4.70-6.10)
[2020-08-11 16:43] LABS: ALT (SGPT) 45 U/L (8-55); AST (SGOT) 27 U/L (5-34); Albumin 4.2 g/dL (3.5-5.0); Alkaline Phosphatase 82 U/L (40-110); Anion Gap 16 mmol/L (10-20); BUN (Urea Nitrogen) 12 mg/dL (8.4-25.7); Bilirubin, Total 0.3 mg/dL (0.2-1.2); Calc. Creatinine Clearance 0 mL/min (70-130); Calcium 9.2 mg/dL (7.8-10.44); Carbon Dioxide 22 mmol/L (22-29); Chloride 106 mmol/L (98-107); Estimated GFR-MDRD 83; Globulin 3.1 g/dL (2.4-3.5); Glucose 95 mg/dL (70-105); Protein, Total 7.3 g/dL (6.0-8.3); Sodium 140 mmol/L (136-145)
[2020-08-11 17:22] LABS: Bilirubin Negative (Negative); Blood, Urine Negative (Negative); Clarity Clear (Clear); Glucose, Urine (Dipstick) Normal (Negative); Ketone, Urine Negative (Negative); Leukocyte Negative Leu/uL (Negative); Nitrite Negative (Negative); Protein, Urine (Dipstick) 20 mg/dL (Neg-Trace); Urobilinogen Normal mg/dL (Less than 2); pH, Urine 6.5 (5.0-9.0)
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
== END 2020-08-11 17:42 | disposition home or self-care (01) ==
LOC: ERS 15:58
DX: M54.5 Low back pain (principal); M54.2 Cervicalgia; M54.6 Pain in thoracic spine; E78.5 Hyperlipidemia, unspecified; I10 Essential (primary) hypertension; J45.909 Unspecified asthma, uncomplicated; F41.9 Anxiety disorder, unspecified; F32.9 Major depressive disorder, single episode, unspecified; Z87.891 Personal history of nicotine dependence; Z79.899 Other long term (current) drug therapy; V89.2XXA Person injured in unspecified motor-vehicle accident, traffic, initial encounter
CPT/HCPCS: 70450; 71260; 72125; 74177; 80053; 81003; 85025; Q9967

== ENCOUNTER 2021-01-21 09:46 | Outpatient (CLI) | payer BC | END 2021-01-21 09:47 | disposition home or self-care (01) | LOC: CTENTCT 09:46 | PROVIDERS: ATTEND Otolaryngology Plastic Surgery within the Head & Neck | DX: J32.9 Chronic sinusitis, unspecified (principal) | CPT/HCPCS: 70486 ==

== ENCOUNTER 2021-07-08 12:59 | Outpatient (CLI) | payer BC ==
[~2021-07-08 12:59] MED LIST changes: +Iopamidol 370 76% 100 ML VIAL ONE; -Iopamidol-370 76% 500 ML 1 ML ONE
== END 2021-07-08 13:00 | disposition home or self-care (01) ==
LOC: BICCT 12:59
PROVIDERS: ATTEND Urology
DX: R31.29 Other microscopic hematuria (principal); F17.200 Nicotine dependence, unspecified, uncomplicated; I72.2 Aneurysm of renal artery; R91.1 Solitary pulmonary nodule; Z90.49 Acquired absence of other specified parts of digestive tract
CPT/HCPCS: 74178; Q9967

== ENCOUNTER 2021-08-09 11:46 | Outpatient (CLI) | payer BC ==
[2021-08-09 13:58] LABS: Bilirubin Neg (Negative); Blood, Urine Negative (Negative); Clarity Clear (Clear); Glucose, Urine (Dipstick) Normal (Negative); Ketone, Urine Negative (Negative); Leukocyte Negative (Negative); Nitrite Negative (Negative); Protein, Urine (Dipstick) Negative (Neg-Trace); Specific Gravity, Urine 1.015 (1.002-1.036); Urobilinogen Normal mg/dL (Less than 2); pH, Urine 6.5 (5.0-9.0)
[2021-08-09 14:09] LABS: Hemoglobin 14.1 g/dL (13.5-17.5); Mean Corpuscular HGB CONC 32.3 g/dL (32.0-36.0); Mean Corpuscular Hemoglobin 28.8 pg (27.0-33.0); Mean Corpuscular Volume 89.2 fl (81.2-95.1); Mean Platelet Volume 11.2 fl (7.4-10.4); Platelet Count 277 10x3/uL (150-450); RBC Distribution Width 13.7 % (11.5-14.5)
[2021-08-09 14:10] LABS: PTT 26.8 sec (22.0-33.0); Prothrombin Time 10.9 sec (9.5-12.1)
[2021-08-09 14:12] LABS: Anion Gap 14 mmol/L (10-20); BUN (Urea Nitrogen) 9 mg/dL (8.4-25.7); Calc. Creatinine Clearance 0 mL/min (70-130); Calcium 9.6 mg/dL (7.8-10.44); Carbon Dioxide 24 mmol/L (22-29); Chloride 104 mmol/L (98-107); Glucose 187 mg/dL (70-105); Sodium 138 mmol/L (136-145)
[2021-08-09 15:23] LABS: Bacteria/HPF None Seen HPF (None Seen); WBC/HPF None Seen HPF (0-3)
[2021-08-09 15:24] LABS: RBC/HPF None Seen HPF (0-3); Squamous Epithelial None Seen HPF (0-3)
[2021-08-10 18:41] LABS: SARS-CoV-2 PCR by NAA Not Detected (NotDetected)
== END 2021-08-09 11:47 | disposition home or self-care (01) ==
LOC: LABBT 11:46
PROVIDERS: ATTEND Urology
DX: Z01.818 Encounter for other preprocedural examination (principal); N40.0 Benign prostatic hyperplasia without lower urinary tract symptoms; Z20.822 Contact with and (suspected) exposure to COVID-19
CPT/HCPCS: 80048; 81001; 85027; 85610; 85730; 87086; 93005; 93010; U0003; U0005

== ENCOUNTER 2025-06-29 15:33 | Outpatient (CLI) | payer OTHER | END 2025-06-29 15:34 | disposition home or self-care (01) | LOC: CT 15:33 | PROVIDERS: ATTEND Family Medicine | DX: S09.90XA Unspecified injury of head, initial encounter (principal); H55.00 Unspecified nystagmus; R42 Dizziness and giddiness | CPT/HCPCS: 70450 ==

== ENCOUNTER 2025-08-15 14:17 | Outpatient (CLI) | payer OTHER | END 2025-08-15 14:18 | disposition home or self-care (01) | LOC: CT 14:17 | PROVIDERS: ATTEND Family Medicine | DX: S09.90XD Unspecified injury of head, subsequent encounter (principal); R42 Dizziness and giddiness; H53.2 Diplopia; J35.2 Hypertrophy of adenoids | CPT/HCPCS: 70482; Q9967 ==